=== PATIENT | female | born 1955 ===

== ENCOUNTER 2018-03-27 10:09 | Inpatient (IN) | payer OTHER, SELFPAY ==
[2018-03-27 11:21] LABS: #Eosinphils 0.1 thou/uL (0.0-0.7); #Lymphocytes 1.4 thou/uL (1.20-3.40); #Monocytes 0.2 thou/uL (0.11-0.59); #Neutrophils 3.8 thou/uL (1.40-6.50); %Basophils 0.4 % (0.0-1.0); %Eosinophils 2.6 % (0.0-10.0); %Lymphocytes 24.4 % (21.0-51.0); %Monocytes 3.6 % (0.0-10.0); Hemoglobin 14.5 g/dL (12.0-16.0); Mean Corpuscular HGB CONC 32.7 g/dL (32.0-36.0); Mean Corpuscular Volume 91.8 fL (78.0-98.0); Mean Platelet Volume 6.9 fL (7.4-10.4); Platelet Count 174 thou/uL (130-400); RBC Distribution Width 14.4 % (11.5-14.5); Red Blood Cell (RBC) Count 4.85 mill/uL (4.20-5.40); White Blood Cell (WBC) Count 5.6 thou/uL (4.8-10.8)
[2018-03-27 11:43] LABS: ALT (SGPT) 11 U/L (8-55); AST (SGOT) 14 U/L (5-34); Albumin 4.7 g/dL (3.4-4.8); Alkaline Phosphatase 96 U/L (40-150); Anion Gap 16 mmol/L (10-20); BUN (Urea Nitrogen) 60 mg/dL (9.8-20.1); Bilirubin, Total 0.3 mg/dL (0.2-1.2); Calc. Creatinine Clearance 0 mL/min (70-130); Calcium 9.8 mg/dL (7.8-10.44); Carbon Dioxide 15 mmol/L (23-31); Chloride 113 mmol/L (98-107); Estimated GFR-MDRD 17; Globulin 3.2 g/dL (2.4-3.5); Glucose 76 mg/dL (80-115); Protein, Total 7.9 g/dL (6.0-8.3); Sodium 136 mmol/L (136-145)
[2018-03-27 11:47] LABS: CKMB 1.3 ng/mL (0-6.6); Troponin I Less than 0.010 ng/mL (< 0.028)
[2018-03-27 11:55] LABS: Potassium 7.8 mmol/L (3.5-5.1)
[2018-03-27] MEDS ORDERED: Dextrose 50% Abboject 50 ML SYRINGE ONE ×2 (12:02→12:08)
[2018-03-27] MEDS ORDERED: Insulin Regular 300 UNITS/3 ML VIAL ONE (12:02)
[2018-03-27] MEDS ORDERED: Calcium Chloride 1 GM/10 ML Abboject SYRINGE ONE (12:04)
[2018-03-27] MEDS ORDERED: Albuterol Sulfate 2.5 mg/0.5 ml Neb ONE (12:07)
[2018-03-27] MEDS ORDERED: Albuterol Sulfate 2.5 mg/3 ml Neb ONE (12:07)
[2018-03-27 12:44] LABS: Bilirubin Negative (Negative); Blood, Urine Trace (Negative); Glucose, Urine (Dipstick) Negative (Negative); Leukocyte Negative (Negative); Nitrite Negative (Negative); Protein, Urine (Dipstick) Trace mg/dL (Neg-Trace); Specific Gravity, Urine 1.015 (1.005-1.030); Urobilinogen 0.2 mg/dL (0.2-1.0)
[2018-03-27 12:47] LABS: Clarity Clear (Clear)
[2018-03-27 12:55] LABS: Bacteria/HPF None Seen HPF (None Seen); Hyaline Casts/LPF NONE SEEN LPF (0-3 Hyaline); RBC/HPF 0-3 HPF (0-3); Squamous Epithelial 0-3 HPF (0-3); WBC/HPF 0-3 HPF (0-3)
--- NOTE | 2018-03-27 13:07 | PDOC.FPRHP ---
- History of Present Illness Chief Complaint: hyperkalemia History of Present Illness: 63 yo female sent from clinic due to elevated potassium level. Patient with history of ESRD on HD. Patient denies having symptoms related to abnormal labs. Patient reports last episode of HD was on Saturday (03/18/18). Has been requiring HD every TTHS. Recently told by nephro that weekly scheduled HD not needed. ED Course: Patient was given 5 mg of albuterol, 1mg of Calcium Chloride, 300mg of insulin w / 50g of D5W and then sent to emergency HD. - Allergies/Adverse Reactions Allergies Allergy/AdvReac Type Severity Reaction Status Date / Time No Known Allergies Allergy Verified 03/27/18 17:48 - Home Medications Medication Instructions Recorded Confirmed Type Aspirin [Ecotrin Low Strength] 81 mg PO 0800 03/27/18 03/27/18 History Ergocalciferol (Vitamin D2) 50,000 unit PO 0800 03/27/18 03/27/18 History [Vitamin D2] Levothyroxine Sodium [Unithroid] 25 mcg PO 0700 03/27/18 03/27/18 History Multivit, Therapeutic [Theragran] 1 tab PO 0800 03/27/18 03/27/18 History Pantoprazole Sodium 40 mg PO 0800 03/27/18 03/27/18 History Tacrolimus [Prograf] 1 mg PO BID 03/27/18 03/27/18 History Tacrolimus [Prograf] 5 mg PO BID 03/27/18 03/27/18 History - History PMHx: ESRD on HD, NAFLD with cirrhosis s/p transplant PSHx: Liver transplant 07/2017, BTL FHx: Father: CVA, DM Mother: healthy Siblings: healthy Daughter: DM Social: Denies tobacco, alcohol, and drug use PCP: Doctor in [place] Code status: Full - Review of Systems General: denies: fever/chills, fatigue Eyes: denies: vision changes ENT: reports: other (no sore throat). denies: nasal congestion Respiratory: denies: cough, congestion, shortness of breath Cardiovascular: denies: chest pain, palpitation Gastrointestinal: denies: nausea, vomiting, diarrhea, constipation Genitourinary: reports: other (no hematuria). denies: dysuria Skin: denies: rashes, lesions Musculoskeletal: denies: pain, arthritis/arthralgias Neurological: reports: other (no headachce). denies: syncope, weakness Psychological: denies: anxiety, depression - Vital signs BP: 148/81 HR: 81 RR: 19 Tmax: 98.7F Pox: 100% on RA Wt: 59.012kg - Physical Exam Constitutional: NAD, awake, alert and oriented, well developed HEENT: normocephalic and atraumatic, grossly normal vision, grossly normal hearing, oropharynx clear Neck: supple, FROM Heart: RRR, normal S1/S2 Lungs: CTAB, no respiratory distress, good air movement, no rales/rhonchi, no wheezing Abdomen: soft, non-tender, bowel sounds present, no masses/distention Musculoskeletal: normal structure, normal tone, ROM grossly normal Neurological: no focal deficit, CN II-XII intact, normal sensation Skin: no rash/lesions, good turgor, capillary refill <2 seconds, no jaundice Heme/Lymphatic: no unusual bruising or bleeding, no purpura Psychiatric: normal mood and affect, good judgment and insight, intact recent and remote memory FMR H&P: Results - Labs Result Diagrams: 03/27/18 11:14 03/27/18 11:14 Lab results: WBC 5.6 thou/uL (4.8-10.8) 03/27/18 11:14 Hgb 14.5 g/dL (12.0-16.0) 03/27/18 11:14 Hct 44.5 % (36.0-47.0) 03/27/18 11:14 MCV 91.8 fL (78.0-98.0) 03/27/18 11:14 Plt Count 174 thou/uL (130-400) 03/27/18 11:14 Neutrophils % 69.0 % (42.0-75.0) 03/27/18 11:14 Sodium 136 mmol/L (136-145) 03/27/18 11:14 Potassium 7.8 mmol/L (3.5-5.1) H* 03/27/18 11:14 Chloride 113 mmol/L (98-107) H 03/27/18 11:14 Carbon Dioxide 15 mmol/L (23-31) L 03/27/18 11:14 BUN 60 mg/dL (9.8-20.1) H 03/27/18 11:14 Creatinine 2.76 mg/dL (0.6-1.1) H 03/27/18 11:14 Glucose 76 mg/dL (80-115) L 03/27/18 11:14 Calcium 9.8 mg/dL (7.8-10.44) 03/27/18 11:14 Total Bilirubin 0.3 mg/dL (0.2-1.2) 03/27/18 11:14 AST 14 U/L (5-34) 03/27/18 11:14 ALT 11 U/L (8-55) 03/27/18 11:14 Alkaline Phosphatase 96 U/L (40-150) 03/27/18 11:14 CK-MB (CK-2) 1.3 ng/mL (0-6.6) 03/27/18 11:14 Serum Total Protein 7.9 g/dL (6.0-8.3) 03/27/18 11:14 Albumin 4.7 g/dL (3.4-4.8) 03/27/18 11:14 Urine Ketones Negative mg/dL (Negative) 03/27/18 11:48 Urine Blood Trace (Negative) H 03/27/18 11:48 Urine Nitrite Negative (Negative) 03/27/18 11:48 Ur Leukocyte Esterase Negative (Negative) 03/27/18 11:48 Urine RBC 0-3 HPF (0-3) 03/27/18 11:48 Urine WBC 0-3 HPF (0-3) 03/27/18 11:48 Ur Squamous Epith Cells 0-3 HPF (0-3) 03/27/18 11:48 Urine Bacteria None Seen HPF (None Seen) 03/27/18 11:48 - EKG Interpretation EKG: NSR w/ no evidence of peaked T waves. FMR H&P: A/P - Problem List (1) Hyperkalemia Current Visit: Yes Status: Acute Code(s): E87.5 - HYPERKALEMIA (2) NAFLD (nonalcoholic fatty liver disease) Current Visit: Yes Status: Resolved (3) Personal history of cirrhosis Current Visit: Yes Status: Acute Code(s): Z87.19 - PERSONAL HISTORY OF OTHER DISEASES OF THE DIGESTIVE SYSTEM (4) Hypothyroidism Current Visit: Yes Status: Chronic Code(s): E03.9 - HYPOTHYROIDISM, UNSPECIFIED (5) Status post liver transplant Current Visit: Yes Status: Chronic Code(s): Z94.4 - LIVER TRANSPLANT STATUS (6) GERD (gastroesophageal reflux disease) Current Visit: Yes Status: Chronic Code(s): K21.9 - GASTRO-ESOPHAGEAL REFLUX DISEASE WITHOUT ESOPHAGITIS (7) HTN (hypertension) Current Visit: Yes Status: Acute Code(s): I10 - ESSENTIAL (PRIMARY) HYPERTENSION - Plan 63YOF w/ a PMH significant for a h/o cirrhosis 2/2 NAFLD who is s/p liver transplantation and ESRD on HD who presented to the ED after being instructed to do so by her automated weaver, Dr. Zeng, after being found to by profoundly hyperkalemic in routine blood work obtained on 03/26/18. Hyperkalemia - Patient is s/p albuterol, insulin w/ D5W, calcium chloride and emergency HD after presenting w/ a K of 7.8. - ECG negative for any peaked T waves. Will continue to monitor closely overnight on telemetry. - Will get a repeat K level in the AM. - Will start on a renal high protein, low potassium diet and consult dieticians to baby counselor patient on following a low K diet per recommendations of nephrology, Dr. Zeng. ESRD on HD - Patient was previously on a TTHS HD schedule but was recently instructed to go to HD less frequently as it was thought that her renal function was improving since her liver transplant. - Last HD session before today was on 03/18/18. - Will avoid all nephrotoxic agents and ensure all meds are renally dosed. - Will start on a renal high protein, low K diet. - Will get a repeat BMP in the AM and assess need for another HD session based on labwork. - Patient's Director Compensation, Dr. Zeng, was consulted in the ED. Appreciate recs. - CM consulted to assist patient with getting set-up for outpatient HD. HTN - SBPs have been >140 consistently since initial presentation to the ED. - Will continue to monitor overnight and consider initiating antihypertensive therapy in the AM based on overnight BPs. s/p liver transplant - Aware, will resume home immunosuppressive therapy. Hypothyroidism - Will resume home synthroid. GERD - Will resume home protonix h/o cirrhosis 2/2 NAFLD - Aware, patient is s/p liver transplant in July of this year. Abx: none IVFs: none DVT PPx: Heparin GI PPx: protonix Dispo: Patient will be monitored overnight w/ possible d/c tomorrow pending tomorrow's labowork results and recs from nephrology. FMR H&P: Upper Level - Pertinent history Cheri Verma is a 63 year old female who was sent to the ED from her automated weaver's office due to hyperkalemia. In the emergency department she was found to have a potassium of 7.8. EKG was unremarkable. She was given CaCl, Insulin with dextrose, and albuterol, and emergent dialysis was initiated. Pt states that originally her dialysis regimen was Saturday, , and Saturday. She states that automated weaver states the no longer needed dialysis this frequently. Her last dialysis was last Saturday. She is currently asymptomatic. - Plan Date/Time: 03/27/18 0687 I, Brooke Gaona, have evaluated this patient and agree with findings/plan as outlined by internet merchant resident. Pertinent changes/additions are listed here. Hyperkalemia. - s/p medication treatment and emergent hemodialysis. - will re-check BMP in AM - telemetry monitoring. ESRD on HD - Dr. Zeng consulted from ED. - his recommendations are appreciated. - we will avoid nephrotoxic drugs. - renal diet. - will resume home medications. Hypothyroidism - will resume home medications. BISHOP cirrhosis s/p liver transplant. Attending Addendum - Attending Addendum Date/Time: 03/27/18 4010 I personally evaluated the patient and discussed the management with Dr. Gaona and Dr. Mukherjee I agree with the History, Examination, Assessment and Plan documented above with any addition or exceptions noted below. 63 yo female with history of NAFLD with cirrhosis now s/p transplant that subsequently developed ESRD requiring weekly HD presents from clinic due to elevated potassium. Patient denies any symptoms related to elevated potassium. Has been treated in the ER and now currently receiving HD. Patient states recently she was told her kidneys looked well enough not to require frequent HD. Last HD was 03/18. Seen today for labs and then quickly sent to ER for management and monitoring. Labs and vitals reviewed. PE: nonill appearing happy female 1. Hyperkalemia due to ESRD: Nephro managing HD. Will continue to follow. No evidence of arrhythmia. Place on tele overnight. Repeat labs after HD and in AM. Monitor other co-morbid conditions and adjust meds as needed. Syl
[2018-03-27 14:34] LABS: HBSAg Index 0.25 S/CO (0-0.99); Hep B Surf Ag Non-Reactive S/CO (NonReactive)
[2018-03-27 15:38] LABS: HBSAB Concentration 1.43 mIU/mL; Hep B Core Total Ab Non-Reactive (NonReactive); Hep B Core Total Index 0.07 S/CO (0-0.79); Hep B Surf AB Non-Reactive (NonReactive); Hep B Surf Ag Non-Reactive S/CO (NonReactive); Hep C IgG Ab Non-Reactive (NonReactive); Hep C Index 0.08 S/CO (0-0.79)
[2018-03-27 18:11] VITALS: BMI 25.4
--- NOTE | 2018-03-27 18:40 | RAD ---
CHEST TWO VIEWS: 03/27/18 HISTORY: Evaluate for tuberculosis. COMPARISON: None. FINDINGS: There is a right sided hemosplit dialysis catheter with the distal tip projecting over the cavoatrial junction. Normal cardiac silhouette. The pulmonary vessels and hilum are normal. Costophrenic angles are clear. No masses or consolidation. No pneumothorax or osseous abnormalities. IMPRESSION: No acute cardiopulmonary process. POS: [facility]
[2018-03-27] MEDS: Ondansetron ODT 4 MG TAB PO PRN (20:26)
[2018-03-27] MEDS: Heparin 5,000 UNITS/ML VIAL SC SCH (20:26)
[2018-03-27] MEDS: Acetaminophen 325 MG TAB PO PRN (20:26)
[2018-03-27] MEDS: Tacrolimus 1 MG CAP PO SCH ×2 (20:44)
[2018-03-27] MEDS ORDERED: Ondansetron PF 4 MG/2 ML Vial SLOW IVP PRN (20:47)
[2018-03-28 05:45] LABS: Anion Gap 13 mmol/L (10-20); BUN (Urea Nitrogen) 23 mg/dL (9.8-20.1); Calc. Creatinine Clearance 28 mL/min (70-130); Calcium 9.5 mg/dL (7.8-10.44); Carbon Dioxide 26 mmol/L (23-31); Chloride 105 mmol/L (98-107); Estimated GFR-MDRD 27; Glucose 83 mg/dL (80-115); Potassium 5.1 mmol/L (3.5-5.1); Sodium 139 mmol/L (136-145)
--- NOTE | 2018-03-28 06:09 | PDOC.FM ---
- Subjective Subjective: NAEO. Patient states she feels well this AM and denies any palpitations, chest pain, or SOB. Does endorse a headache that began this AM and some N/V since completing HD yesterday. Threw up once this AM. Got some tylenol for her CROWELL. States she normally gets headaches after HD. Otherwise, is feeling fine. - Objective MAR Reviewed: Yes Vital Signs & Weight: Vital Signs (12 hours) Temp Pulse Resp BP Pulse Ox 03/28/18 04:00 98.2 F 71 16 101/59 L 96 03/28/18 00:00 98.1 F 72 20 127/64 98 03/27/18 20:25 97 03/27/18 20:00 98.2 F 86 20 142/87 H 96 03/27/18 18:31 97 Weight Weight 59.012 kg Result Diagrams: 03/27/18 11:14 03/28/18 05:12 <Leah Mukherjee - Last Filed: 03/28/18 10:09> - Objective Vital Signs & Weight: Vital Signs (12 hours) Temp Pulse Resp BP Pulse Ox 03/28/18 12:00 98.0 F 79 18 106/61 95 03/28/18 08:00 97.8 F 74 20 116/57 L 96 03/28/18 04:00 98.2 F 71 16 101/59 L 96 Weight Weight 58.196 kg I&O: 03/27/18 03/28/18 03/29/18 06:59 06:59 06:59 Intake Total 50 Output Total 250 Balance -200 Result Diagrams: 03/27/18 11:14 03/28/18 05:12 <Maico Irby - Last Filed: 03/28/18 12:51> Phys Exam - Physical Examination Constitutional: NAD HEENT: moist MMs Neck: supple, full ROM Respiratory: no wheezing, no rales, no rhonchi, clear to auscultation bilateral Cardiovascular: RRR, no significant murmur Gastrointestinal: soft, non-tender, no distention, positive bowel sounds Musculoskeletal: no edema, pulses present Neurological: non-focal, normal sensation, moves all 4 limbs Psychiatric: normal affect, A&O x 3 Skin: no rash, normal turgor <Leah Mukherjee - Last Filed: 11/02/18 10:09> Dx/Plan (1) Hyperkalemia Code(s): E87.5 - HYPERKALEMIA Status: Acute (2) NAFLD (nonalcoholic fatty liver disease) Status: Resolved (3) Personal history of cirrhosis Code(s): Z87.19 - PERSONAL HISTORY OF OTHER DISEASES OF THE DIGESTIVE SYSTEM Status: Acute (4) Hypothyroidism Code(s): E03.9 - HYPOTHYROIDISM, UNSPECIFIED Status: Chronic (5) Status post liver transplant Code(s): Z94.4 - LIVER TRANSPLANT STATUS Status: Chronic (6) GERD (gastroesophageal reflux disease) Code(s): K21.9 - GASTRO-ESOPHAGEAL REFLUX DISEASE WITHOUT ESOPHAGITIS Status: Chronic (7) HTN (hypertension) Code(s): I10 - ESSENTIAL (PRIMARY) HYPERTENSION Status: Acute - Plan Plan: 63YOF w/ a PMH significant for a h/o cirrhosis 2/2 NAFLD who is s/p liver transplantation and ESRD on HD who presented to the ED after being instructed to do so by her jailer, Dr. Zeng, after being found to by profoundly hyperkalemic in routine blood work obtained on 03/26/18. Hyperkalemia - Patient is s/p albuterol, insulin w/ D5W, calcium chloride and emergency HD after presenting w/ a K of 7.8. ECG negative for any peaked T waves. - K down to 5.1 this AM. - Will continue to monitor on telemetry. - Will start on a renal high protein, low potassium diet. - Dietiticians consulted yesterday to educate patient on following a low K diet. ESRD on HD - Patient was previously on a TT HD schedule but was recently instructed to go to HD less frequently as it was thought that her renal function was improving since her liver transplant. - Last HD session before yesterday was on 03/18/18. - Will avoid all nephrotoxic agents and ensure all meds are renally dosed. - Will continue on a renal high protein, low K diet. - Patient's Toolroom Attendant, Dr. Zeng, was consulted in the ED. Appreciate recs. - CM consulted to assist patient with getting set-up for outpatient HD. HTN - SBPs normalized overnight after HD. - Will continue to monitor during the rest of her stay and consider initiating antihypertensive therapy based on average BPs. s/p liver transplant - Aware, will continue home immunosuppressive therapy. Hypothyroidism - Will continue home synthroid. GERD - Will continue home protonix. h/o cirrhosis 2/2 NAFLD - Aware, patient is s/p liver transplant in July of this year. Abx: none IVFs: none DVT PPx: Heparin GI PPx: protonix Dispo: Patient will be monitored today w/ possible d/c later today pending recs from nephrology. <Leah Mukherjee - Last Filed: 03/28/18 10:09> Attending Addendum - Attending Addendum Date/Time: 03/28/18 1251 I personally evaluated the patient and discussed the management with Dr. Mukherjee. I agree with the History, Examination, Assessment and Plan documented above with any addition or exceptions noted below. <Maico Irby - Last Filed: 03/28/18 12:51>
[2018-03-28] MEDS: Acetaminophen 325 MG TAB PO PRN ×2 (06:26→12:50)
[2018-03-28] MEDS: Ondansetron ODT 4 MG TAB PO PRN ×2 (06:29→12:50)
[2018-03-28] MEDS ORDERED: Levothyroxine Sodium 25 MCG TAB PO SCH (07:00)
[2018-03-28] MEDS ORDERED: Activase 2 MG VIAL CATH SCH (07:30)
[2018-03-28] MEDS ORDERED: Sterile Water 10 ML VIAL IVP SCH (07:30)
[2018-03-28] MEDS ORDERED: Heparin 1,000 UNITS/ML VIAL FS PRN (07:33)
--- NOTE | 2018-03-28 07:40 | CON ---
DATE OF CONSULTATION: 03/27/2018 CONSULTING PHYSICIAN: REASON FOR CONSULTATION: Hyperkalemia. REASON OF ADMISSION: Abdominal abscess. HISTORY OF PRESENT ILLNESS: This is a 63-year-old female seen in the ER for abnormal labs. No nause a, vomiting, no chest pain. The patient was found to have potassium of 7.3 and repeat one was 7.8. Patient denies any problems. The EKG showed peaked T waves. No fever or chills. No nausea, vomiting. PAST MEDICAL HISTORY: Positive for end-stage renal disease, ESRD, cirrhosis. Pulse rate is stable _ ____. Home medication list not available. ALLERGIES: No known allergies. SOCIAL HISTORY: No smoking, alcohol. FAMILY HISTORY: Noncontributory. REVIEW OF SYSTEMS: The following complete review of systems was negative, unless otherwise mentioned in the HPI or below: Constitutional: Weight loss or gain, ability to conduct usual activities. Sk in: Rash, itching. Eyes: Double vision, pain. ENT/Mouth: Nose bleeding, neck stiffness, pain, te nderness. Cardiovascular: Palpitations, dyspnea on exertion, orthopnea. Respiratory: Shortness of breath, wheezing, cough, hemoptysis, fever or night sweats. Gastrointestinal: Poor appetite, abdom inal pain, heartburn, nausea, vomiting, constipation, or diarrhea. Genitourinary: Urgency, frequenc y, dysuria, nocturia. Musculoskeletal: Pain, swelling. Neurologic/Psychiatric: Anxiety, depressio n. Allergy/Immunologic: Skin rash, bleeding tendency. PHYSICAL EXAMINATION: GENERAL: This is a well-built female in no apparent distress. VITAL SIGNS: Temperature 98.6, pulse 70, respiratory rate 18, blood pressure 127/76. HEENT: Atraumatic, normocephalic. Oral mucosa is moist. NECK: Supple, no masses. CARDIOVASCULAR: S1, S2. Rate and rhythm regular. RESPIRATORY: Clear. ABDOMEN: Soft. MUSCULOSKELETAL: 1+ edema. DERMATOLOGIC: No rash. NEUROLOGIC: Alert, awake. PSYCHIATRIC: Mood and affect. LABORATORY: Hemoglobin 14.5, potassium 7.8, BUN 60, creatinine is 2.7. ASSESSMENT AND PLAN: 1. Hyperkalemia. Recommend dietitian consult for a diet counseling. 2. We will have dialysis. 3. End-stage renal disease. We will start back on dialysis. The patient was taken off dialysis, wendy karimi not doing well. 4. Metabolic acidosis. 5. Edema, controlled. 6. Hypertension, stable. Plan is to have dialysis. We talked with the dialysis facility and willing to take her back on this Saturday. Talk with case management and also to arrange paper work. We will continue to follow. Thank you for the consult.
[2018-03-28] MEDS ORDERED: Multivit, Therapeutic 1 TAB PO SCH (08:00)
[2018-03-28] MEDS ORDERED: Ergocalciferol 1.25 MG(50,000 UNITS) CAP PO SCH (08:00)
[2018-03-28] MEDS ORDERED: Aspirin 81 mg Enteric Coated Tablet PO SCH (08:00)
[2018-03-28] MEDS: Tacrolimus 1 MG CAP PO SCH ×2 (08:26→08:27)
[2018-03-28] MEDS: Heparin 5,000 UNITS/ML VIAL SC SCH ×2 (08:27→14:34)
[2018-03-28] MEDS ORDERED: Heparin 10,000 UNITS/ 10 ML VIAL ONE (10:03)
[2018-03-28] MEDS ORDERED: traMADol HCl 50 MG TAB PO SCH (10:30)
[2018-03-28 17:22] VITALS: BP 125/64; TEMP 98.6
--- NOTE | 2018-03-28 17:36 | PRG ---
DATE OF SERVICE: 03/28/2018 SUBJECTIVE: Patient was seen and examined at bedside and overnight events noted. Patient denies any shortness of breath or chest pain or palpitation. No history of nausea or vomiting or diarrhea or f ever or chills or cramps. OBJECTIVE: GENERAL: This is a well-built female in no apparent distress. VITAL SIGNS: Temperature 98.0, pulse 79, respiratory rate 18, blood pressure 106/61. HEENT: Atraumatic, normocephalic. Oral mucosa is moist. NECK: Supple. CARDIOVASCULAR: S1, S2 heard. Rate and rhythm regular. RESPIRATORY: Clear to auscultation. GASTROINTESTINAL: Abdomen is soft. MUSCULOSKELETAL: No tenderness. No edema. DERMATOLOGIC: No skin rash. NEUROLOGIC: Alert and awake and oriented x3. No focal neurologic deficits. Moving all the extremiti es. PSYCHIATRIC: Mood and affect normal. LABORATORY DATA: Potassium 5.1, BUN 23, creatinine is 1.8. ASSESSMENT AND PLAN: 1. Hyperkalemia, better. 2. End-stage renal disease, stable. 3. Metabolic acidosis. 4. Edema. 5. Hypertension. Plan is to continue on dialysis for acute kidney injury. We will follow. Limit potassium intake and patient's family was counseled.
--- NOTE | 2018-03-29 01:48 | DIS-2 ---
DATE OF ADMISSION: 03/27/2018 DATE OF DISCHARGE: 03/28/2018 ADMITTING RESIDENT: Leah Mukherjee M.D. ADMITTING ATTENDING: Felipa Peterson M.D. DISCHARGE ATTENDING: Felipa Peterson M.D. CONSULTATIONS: Nephrology, Dr. See Zeng. PROCEDURES: Chest x-ray showed no acute cardiopulmonary process. PRIMARY DIAGNOSIS: Hyperkalemia. SECONDARY DIAGNOSES: 1. End-stage renal disease on hemodialysis. 2. History of nonalcoholic liver cirrhosis secondary to nonalcoholic fatty liver disease. 3. History of liver transplant. 4. Hypothyroidism. 5. Gastroesophageal reflux disease. DISCHARGE MEDICATIONS: 1. Tacrolimus 5 mg p.o. b.i.d. 2. Tacrolimus 1 mg p.o. b.i.d. 3. Protonix 40 mg p.o. daily. 4. Theragran 1 tab p.o. daily. 5. Synthroid 25 mcg p.o. daily. 6. Ergocalciferol 50,000 unit capsule p.o. daily. 7. Aspirin 81 mg p.o. daily. 8. Tylenol 650 mg p.o. every 4 hours p.r.n. for pain. 9. Zofran under the tongue 4 mg p.o. every 6 hours p.r.n. for nausea. HISTORY OF PRESENT ILLNESS AND HOSPITAL COURSE: The patient is a 63-year-old female with a past medical history significant for end-stage renal disease, previously on Saturday, , Saturday hemodialysis and history of cirrhosis secondary to NAFLD status post liver transplant in July of this year , who presented to the emergency department after having abnormal labs drawn on the day prior to presentation. The patient had labs drawn on 03/26/2018 which showed profound hyperkalemia of 7.8 and she was therefore instructed by her efficiency engineer, Dr. See Zeng, to present to the emergency department for likely emergent hemodialysis therapy. On presentation to the [facility] Emergency Department, the patient's potassium was noted to be significantly elevated at 7.3. Her BUN and creatinine were also significantly elevated at 60 and 2.76, consistent with the patient's end-stage renal disease. All other labs were normal and her EKG showed no signs of peaked T waves consistent with hyperkalemia. She was therefore given 5 mg of inhaled albuterol, 1 mg of calcium chloride, 300 mg of insulin with 50 grams of D5W and sent up for emergency hemodialysis. The patient was dialyzed for approximately 2-1/2 hours and admitted to the telemetry floor for close monitoring overnight. She remained stable overnight and by the following morning, her potassium had decreased to within normal limits at 5.1. Later that afternoon on the date of discharge, the patient had been approved for outpatient dialysis once again with [facility] in [place], [place] and was therefore cleared to be discharged home with an appointment to be dialyzed the morning of 03/29/18. DISPOSITION: Stable. DISCHARGE INSTRUCTIONS: 1. Location: Home. 2. Diet: Renal diet and low potassium diet. 3. Activity: As tolerated. 4. Followup: The patient was instructed to follow up with her primary care physician within 1 week of discharge as well as her efficiency engineer Dr. See Zeng. She was also instructed to report to the [facility] in [place], [place], for a scheduled hemodialysis appointment on Saturday03/29/2018 at 12:30 p.m. RASHARD
--- NOTE | 2018-03-29 23:08 | EKG ---
Test Reason : Blood Pressure : / mmHG Vent. Rate : 067 BPM Atrial Rate : 067 BPM P-R Int : 172 ms QRS Dur : 078 ms QT Int : 396 ms P-R-T Axes : 053 -20 048 degrees QTc Int : 418 ms Normal sinus rhythm Normal ECG Confirmed by MOUNIKA KATZ ([id number]), medical transcription editor TOBY GARBER ([id number]) on 03/29/2018 11:07:25 PM Referred By: Confirmed By:MOUNIKA KATZ
== END 2018-03-28 18:59 | disposition home or self-care (01) | DRG 640 ==
LOC: ERS 10:09 → 2NO 13:44
PROVIDERS: ADMIT Family Medicine; ATTEND Family Medicine
PROC: 5A1D70Z Performance of Urinary Filtration, Intermittent, Less than 6 Hours Per Day (ICD-10-PCS; principal; 2018-03-27)
DX: E87.5 Hyperkalemia (principal); N18.6 End stage renal disease; Z94.4 Liver transplant status; I12.0 Hypertensive chronic kidney disease with stage 5 chronic kidney disease or end stage renal disease; K76.0 Fatty (change of) liver, not elsewhere classified; E03.9 Hypothyroidism, unspecified; K21.9 Gastro-esophageal reflux disease without esophagitis; Z99.2 Dependence on renal dialysis; E87.2 Acidosis
CPT/HCPCS: 36415; 71046; 80048; 80053; 81003; 81015; 82553; 84100; 84484; 85025; 85027; 86704; 86706; 86803; 87340; 90935; 93005; 94640; 96361; 96374; 96375; A4216; G0257; J1644; J1815; J2997; J7507; J7611; Q0162